=== PATIENT | female | born 1985 | race Caucasian/White ===

== ENCOUNTER 2016-06-02 20:36 | Emergency (ER) | payer MEDICAID, OTHER ==
[~2016-06-02] VITALS: Ht 162.6 cm; Wt 53.5 kg
[~2016-06-02 20:36] MED LIST: IBUP200C PO
[2016-06-02 20:38] VITALS: Ht 162.6 cm; Wt 53.5 kg
--- NOTE | 2016-06-02 22:43 | RADRPT ---
PROCEDURE: XR Chest. CLINICAL INDICATION: Dyspnea. TECHNIQUE: Single frontal view of the chest was obtained COMPARISON: None FINDINGS: The heart and mediastinum are within normal limits. The lungs are clear. There is no pleural effusion or pneumothorax. IMPRESSION: No acute disease. RPTAT: [facility] Physician Samuel Date Time Electronically viewed and signed by Physician Samuel on 06/02/2016 22:42 RS/
[2016-06-02 23:03] LABS: URINE BLOOD (Dip) POC Negative (NEGATIVE)
[2016-06-02 23:37] VITALS: BP 123/78; PULSE 78; RESP 17
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
== END 2016-06-03 00:01 | disposition home or self-care (01) ==
LOC: FTE 20:36
DX: R42 Dizziness and giddiness (principal); F17.210 Nicotine dependence, cigarettes, uncomplicated
CPT/HCPCS: 71010; 81003; 82962; 93005; Z7502

== ENCOUNTER 2016-12-07 20:15 | Emergency (ER) | payer MEDICAID, OTHER ==
[~2016-12-07] VITALS: Ht 157.5 cm; Wt 51.5 kg
[2016-12-07 20:20] VITALS: Ht 157.5 cm; Wt 51.5 kg
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
[2016-12-07 22:14] LABS: ADD UMIC YES; UR ASCORBIC ACID 20 mg/dL (NEGATIVE); UR BILIRUBIN (Dip) NEGATIVE (NEGATIVE); UR BLOOD (Dip) 1+ mg/dL (NEGATIVE); UR CLARITY CLEAR (CLEAR); UR COLOR YELLOW (YELLOW); UR GLUCOSE (Dip) NEGATIVE (NEGATIVE); UR KETONES (Dip) 1+ mg/dL (NEGATIVE); UR LEUKOCYTE ESTERASE (Dip) NEGATIVE Leu/ul (NEGATIVE); UR MUCUS FEW /HPF (NONE SEEN); UR NITRITE (Dip) NEGATIVE (NEGATIVE); UR RBC 2 /HPF (0-5); UR SPECIFIC GRAVITY (Dip) 1.014 (1.003-1.030); UR SQUAMOUS EPITHELIAL CELL FEW /HPF (FEW); UR TOTAL PROTEIN (Dip) NEGATIVE (NEGATIVE); UR UROBILINOGEN (Dip) NEGATIVE (NEGATIVE)
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
[2016-12-07] MEDS ORDERED: CYCL-319 PO (22:50)
[2016-12-07] MEDS ORDERED: ACET500C5 PO (22:50)
[2016-12-07] MEDS ORDERED: CEPH-443 PO (22:50)
[2016-12-07] MEDS ORDERED: HYDR-906 PO (22:50)
== END 2016-12-07 23:36 | disposition home or self-care (01) ==
LOC: FTE 20:15
DX: S16.1XXA Strain of muscle, fascia and tendon at neck level, initial encounter (principal); S39.012A Strain of muscle, fascia and tendon of lower back, initial encounter; S70.02XA Contusion of left hip, initial encounter; S20.219A Contusion of unspecified front wall of thorax, initial encounter; F17.210 Nicotine dependence, cigarettes, uncomplicated; V49.40XA Driver injured in collision with unspecified motor vehicles in traffic accident, initial encounter
CPT/HCPCS: 70450; 71020; 72125; 72128; 72131; 73510; 81001; Z7502